=== PATIENT | female | born 1985 | race Caucasian/White ===

== ENCOUNTER 2016-05-31 18:16 | Emergency (ER) | payer MEDICAID, OTHER ==
--- NOTE | 2016-05-31 18:37 | Emergency Department Record ---
History of Present Illness - General Chief complaint: OB/Uterine Contract/ Stated complaint: ABD CRAMPING/ Time Seen by Provider: 05/31/16 18:31 Source: Patient Mode of Arrival: Ambulatory Limitations: No limitations Travel/Exposure to [place] Within 21 Days of Symptoms: No - History of Present Illness Initial comments: 31 yo female presents to ED with a CC of lower abdominal cramping that began several days ago, denies bleeding or spotting. Patient reports simialr symptoms with previous resulting in miscarriage. Patient denies vomiting, change in stools, or urinary symptoms. Patient has not seen her OB ( Dr. Galan) for this as of yet, and denies previous US. MD Complaint: Abdominal pain Onset/Timin -: Days(s) Location: Pelvis Severity: Moderate Severity scale (1-10): 6 Quality: Aching, Cramping Consistency: Intermittent Improves with: None Worsens with: None Associated symptoms: Denies other symptoms Vaginal bleeding: None Number of weeks : 10 No complications Miscarriage 03/19/16 Pre- care: Other - Related Data : 4 Para: 2 Ab: 1 Home Medications Medication Instructions Recorded Confirmed Last Taken No Home Med [NO HOME MEDS] 01/08/15 05/31/16 Unknown Allergies Allergy/AdvReac Type Severity Reaction Status Date / Time No Known Drug Allergies Allergy Verified 05/31/16 18:30 Review of Systems Constitutional: Denies: Chills, Fever, Malaise, Night sweats Eyes: Denies: Eye discharge, Eye pain ENT: Denies: Congestion, Ear pain, Epistaxis Respiratory: Denies: Cough, Dyspnea Cardiovascular: Denies: Chest pain, Dyspnea on exertion Endocrine: Denies: Fatigue, Heat or cold intolerance Gastrointestinal: Reports: Abdominal pain. Denies: Constipation, Nausea, Vomiting Genitourinary: Denies: Abnormal menses, Discharge, Dysuria, Hematuria Musculoskeletal: Denies: Arthralgia, Back pain Skin: Denies: Bruising, Change in color Neurological: Denies: Abnormal gait, Confusion, Headache Psychiatric: Denies: Anxiety Hematological/Lymphatic: Denies: Anemia, Blood Clots Past Medical History - SOCIAL HISTORY Smoking Status: Never smoker Alcohol Use: None Drug Use: None - APPEALS ANALYST History : 4 Para: 2 A: 1 - RESPIRATORY Hx Respiratory Disorders: Yes Hx Asthma: Yes - CARDIOVASCULAR Hx Cardio Disorders: No - NEURO Hx Neuro Disorders: No - GI Hx GI Disorders: No - Hx Genitourinary Disorders: No - ENDOCRINE Hx Endocrine Disorders: No - MUSCULOSKELETAL Hx Musculoskeletal Disorders: No - PSYCH Hx Psych Problems: Yes Hx Depression: Yes (Post part. depression) - HEMATOLOGY/ONCOLOGY Hx Hematology/Oncology Disorders: No Family Medical History Any Significant Family History?: Yes Hx Cancer: Grandparents Hx Heart Disease: Father, Grandparents Hx HTN: Father, Grandparents Physical Exam - General General Appearance: Alert, Oriented x3, Cooperative, No acute distress Limitations: No limitations - Head Head exam: Atraumatic, Normocephalic, Normal inspection Head exam detail: negative: Abrasion, Contusion, Garcia's sign, General tenderness, Hematoma, Laceration - Eye Eye exam: Normal appearance. negative: Conjunctival injection, Periorbital swelling, Periorbital tenderness, Scleral icterus - ENT Ear exam: negative: Auricular hematoma, Auricular trauma Nasal Exam: negative: Active bleeding, Discharge, Dried blood, Foreign body Mouth exam: negative: Drooling, Laceration, Muffled voice, Tongue elevation - Neck Neck exam: Normal inspection. negative: Meningismus, Tenderness - Respiratory Respiratory exam: Normal lung sounds bilaterally. negative: Respiratory distress, Rhonchi, Stridor, Wheezes - Cardiovascular Cardiovascular Exam: Regular rate, Normal rhythm, Normal heart sounds - GI/Abdominal GI/Abdominal exam: Soft. negative: Organomegaly, Pulsatile mass, Rebound, Rigid - Rectal Rectal exam: Deferred - exam: Deferred - Extremities Extremities exam: Normal inspection. negative: Calf tenderness, Pedal edema, Tenderness - Back Back exam: Denies: CVA tenderness (R), CVA tenderness (L) - Neurological Neurological exam: Alert, Normal gait, Oriented X3 - Psychiatric Psychiatric exam: Normal affect, Normal mood - Skin Skin exam: Normal color. negative: Abrasion Type of lesion: negative: abrasion Course Vital Signs 05/31/16 18:23 Temperature 98.2 F Pulse Rate 97 H Respiratory 18 Rate Blood Pressure 124/82 Pulse Ox 98 - Reevaluation(s) Reevaluation #1: 05/31/16 18:37 Case was discussed with Dr. Torres ([facility] ED), will acept transfer for US imaging. Disposition Disposition: Transfer Clinical Impression: Abdominal pain affecting Disposition: Acute Care Hospital Transfer Transfer To: [facility] Reason For Transfer: US pelvis Accepting Physician: Melissa Time Discussed w/Accepting Physician: 18:38 Condition: (2) Stable Forms: Patient Portal Access Time of Disposition: 18:38
== END 2016-05-31 19:03 | disposition short-term general hospital (02) ==
LOC: ER 18:16
DX: O26.891 Other specified pregnancy related conditions, first trimester (principal); R10.30 Lower abdominal pain, unspecified; Z3A.10 10 weeks gestation of pregnancy
CPT/HCPCS: 99283